=== PATIENT | male | born 1940 | race Caucasian/White ===

== ENCOUNTER → 2016-09-11 | Outpatient (REF) | payer MEDICARE, OTHER ==
[~2016-09-11] MED LIST: /AUGM875TA OR; /WARF5TA PO; ACET500C PO; ACET50TA PO; ACET50TAOT PO; ALLO100T OR; ALLO100T PO; AMPI50CA PO; APIDINJ INJ; APIDINJ2 SC; ASPI325T PO; BACT800T5 PO; BEN GAY TOP; BEN1.4DI TOP; BENGAY TOP; CEFD300CAP PO; COLA100C2 OR; COUM1TAB17 PO; COUM2TAB10 PO; COUM7.5T PO; DIGO0.126 OR; DULC10SU2 PR; DULC5TAB PO; ENAL2.5T PO; ENAL5TAB OR; FERR325T3 PO; FLUC10TA PO; FURO1TAB15 PO; FURO80TA2 OR; INSUH10VL SC; INSULANT SC; LANO0.1211 PO; LASI40TA PO; LASI80TA PO; LOPR100T OR; MESA50SU PR; METO100T PO; MICO2CRE39 EXT; SPIR25TA2 OR; SPIR25TA2 PO; TIMO0.255 OU; TIMO0.5S OU; TIMO5OPD OU; TIMO5OPG OU; TRAM37.53 PO; TRAM50TA2 PO; TRAV0.006 OU; TYLE500T53 OR; ULTR50TA PO; VASO5TAB11 PO; VICO5TAB OR; VICODIN PO; WARFARIN PO; XALA0.002 OU; XALATAN OPTH OU; XALATAN OU; ZITH250T PO
[2016-09-11 17:40] LABS: ALBUMIN 3.9 GM/DL (3.2-5.2); ALBUMIN/GLOBULIN RATIO 1.03 (1.00-1.93); ALKALINE PHOSPHATASE 73 U/L (45-117); ALT/SGPT 29 U/L (12-78); ANION GAP 8 MEQ/L (8-16); AST/SGOT 25 U/L (15-37); BILIRUBIN,TOTAL 0.5 MG/DL (0.2-1.0); BLOOD UREA NITROGEN 24 MG/DL (7-18); CALCIUM LEVEL 9.2 MG/DL (8.8-10.2); CARBON DIOXIDE LEVEL 25 MEQ/L (21-32); CHLORIDE LEVEL 108 MEQ/L (98-107); CHOLESTEROL LEVEL 174 MG/DL (<200); CREATININE FOR GFR 1.12 MG/DL (0.70-1.30); GLOMERULAR FILTRATION RATE > 60.0 (>42); GLUCOSE, FASTING 114 MG/DL (83-110); POTASSIUM SERUM 4.4 MEQ/L (3.5-5.1); SODIUM LEVEL 141 MEQ/L (136-145); TOTAL PROTEIN 7.7 GM/DL (6.4-8.2); TRIGLYCERIDES LEVEL 233 MG/DL (<150)
== END ==
LOC: M SFHCCLAY 10:05
PROVIDERS: ATTEND Family Medicine
DX: E11.9 Type 2 diabetes mellitus without complications (principal); E78.00 Pure hypercholesterolemia, unspecified

== ENCOUNTER → 2017-02-07 | Outpatient (REF) | payer MEDICARE, OTHER ==
[~2017-02-07] MED LIST changes: +AMPI500C9 PO; -AMPI50CA PO; +BIMA01SOL OU; -COUM2TAB10 PO; +COUM2TAB22 PO; -FURO1TAB15 PO; +FURO80TA2 PO; +HUMA100I3 SC; -METO100T PO; +METO100T5 PO; +WARF-23 PO; -XALA0.002 OU; +XALA0.007 OU
[2017-02-07 18:24] LABS: ANION GAP 10 MEQ/L (8-16); BLOOD UREA NITROGEN 24 MG/DL (7-18); CARBON DIOXIDE LEVEL 25 MEQ/L (21-32); CHLORIDE LEVEL 107 MEQ/L (98-107); CREATININE FOR GFR 1.17 MG/DL (0.70-1.30); GLOMERULAR FILTRATION RATE > 60.0 (>42); GLUCOSE, FASTING 102 MG/DL (83-110); POTASSIUM SERUM 4.4 MEQ/L (3.5-5.1); SODIUM LEVEL 142 MEQ/L (136-145)
== END ==
LOC: M SFHCCLAY 10:27
PROVIDERS: ATTEND Family Medicine
DX: E11.9 Type 2 diabetes mellitus without complications (principal); I50.20 Unspecified systolic (congestive) heart failure; I48.2 Chronic atrial fibrillation; Z79.01 Long term (current) use of anticoagulants; M10.9 Gout, unspecified; E78.00 Pure hypercholesterolemia, unspecified; Z85.51 Personal history of malignant neoplasm of bladder
CPT/HCPCS: 36415; 80048; 83036; G0463

== ENCOUNTER 2017-04-27 10:48 | Day surgery (SDC) | payer MEDICARE ==
[~2017-04-27] VITALS: Ht 172.7 cm; Wt 100.2 kg
[2017-04-27] MEDS ORDERED: LR 1,000 ML IV ONE (11:00)
[2017-04-27 11:39] LABS: INR 1.24
[2017-04-27] MEDS ORDERED: LIDOCAINE 1% SDV INJ 30 ML VIAL As Ordered ONE (12:43)
[2017-04-27] MEDS ORDERED: MIDAZOLAM INJ 2 MG/2 ML VIAL (J2250) As Ordered ONE (12:56)
[2017-04-27] MEDS ORDERED: LIDOCAINE 2% INJ 100 MG/5 ML SDV (FOR ANES.) As Ordered ONE (12:56)
[2017-04-27] MEDS ORDERED: fentaNYL 100 MCG/2 ML INJECTION (J3010) As Ordered ONE (12:56)
[2017-04-27] MEDS ORDERED: PROPOFOL 200 MG/20 ML VIAL As Ordered ONE ×2 (12:56→13:51)
[2017-04-27] MEDS ORDERED: PHENYLephrine HCL 500 MCG/5 ML (100MCG/ML) SYRINGE (J2370) As Ordered ONE (13:33)
[2017-04-27 15:15] VITALS: BP 116/65
--- NOTE | 2017-04-27 15:30 | RO ---
DATE OF PROCEDURE: 04/27/2017 PREOPERATIVE DIAGNOSIS: Pacemaker battery depletion. POSTOPERATIVE DIAGNOSIS: Pacemaker battery depletion. PROCEDURE PERFORMED: Explantation of old Medtronic single chamber pacemaker pulse generator and implantation of a new [place] [employer] single chamber pacemaker pulse generator. SURGEON: Jg Toledo MD CRATE TIER: None. ANESTHESIA: Lidocaine 1% local/monitored anesthetic care. FINDINGS: Pacemaker battery depletion. SPECIMENS: Old single chamber Medtronic pacemaker pulse generator. ESTIMATED BLOOD LOSS: Less than 5 mL. No blood products replaced. No drains. No complications. PROCEDURE DESCRIPTION: The patient was prepped and draped over the left pectoral region. 3M Ioban film was applied. Lidocaine 1% was used for local anesthetic. An incision was made with a IntelliFlo PEAK PlasmaBlade over the existing pacemaker incision. This was used to dissect down and through to the superior aspect of the pacemaker as it sat in the pocket, and also a small amount of fine scissor dissection was used to cut through parts of the capsule. The pacemaker pulse generator was then removed from the pocket, and after loosening the setscrew, the existing pacemaker lead was plugged into the pacemaker pulse generator and secured by tightening the setscrew with the hex screwdriver. Next, I then proceeded to dissect through and free up a portion of the existing pacemaker lead that was buried in the anterior capsule so as to make it safer to stitch the suture line closed without it going through a pacemaker lead, and this was performed using the PEAK PlasmaBlade. Next, I expanded the caudal portion of the pacemaker pocket to accommodate the larger and different shaped pacemaker pulse generator using blunt dissection, using two fingers. The new pacemaker pulse generator was tested wirelessly through the device. The pacemaker pulse generator was then placed into the pacemaker pocket with the excess lead material below. I then took a IntelliFlo TYRX antimicrobial envelope (medium) and cut it to six pieces. These pieces were placed on top of the pacemaker pulse generator and placed into the pacemaker pocket. The deep layer was closed using individual sutures consisting of #4-0 Vicryl. The skin was then approximated using subcutaneous stitch consisting of a #4-0 Biosyn suture, which was tied deep from the starting stitch and then snipped at the level of the skin at the other end of the suture line. Two layers of Dermabond was applied. Then, Mastisol was applied above and below the incision line and then, a layer of Steri-Strips were placed perpendicular to the incision line direction. Patient tolerated the procedure well without any immediate complications. The existing pacemaker lead was a Medtronic CapSureFix Bipolar INSULIN IS-1, Model 4076 with Serial #[id number]. It was originally implanted 11/22/2007. The explanted pacemaker pulse generator was a IntelliFlo, Model ADSR01, which had Serial #[id number]. It was originally implanted 11/22/2007. The new pacemaker pulse generator implanted was a [place] [employer] Accolade SR, Model L300 with Serial #[id number]. Device pace testing in the operating room through the new pacemaker pulse generator showed capture threshold of 0.7 V at 0.4 ms with R wave amplitude of 11.5 mV and lead impedance of 549 ohms. [facility]
== END 2017-04-27 15:34 | disposition home or self-care (01) ==
LOC: M SDC 10:48
PROVIDERS: ATTEND Internal Medicine Cardiovascular Disease
DX: T82.111A Breakdown (mechanical) of cardiac pulse generator (battery), initial encounter (principal); I48.2 Chronic atrial fibrillation; I42.0 Dilated cardiomyopathy; I10 Essential (primary) hypertension; E66.09 Other obesity due to excess calories; E10.9 Type 1 diabetes mellitus without complications; C67.9 Malignant neoplasm of bladder, unspecified; M54.5 Low back pain; G89.29 Other chronic pain; H40.9 Unspecified glaucoma; I25.2 Old myocardial infarction; M10.9 Gout, unspecified; M12.9 Arthropathy, unspecified; Z79.899 Other long term (current) drug therapy; Z79.4 Long term (current) use of insulin; Z79.01 Long term (current) use of anticoagulants; Z92.21 Personal history of antineoplastic chemotherapy; Z92.3 Personal history of irradiation; Z87.891 Personal history of nicotine dependence; X58.XXXA Exposure to other specified factors, initial encounter; Y92.89 Other specified places as the place of occurrence of the external cause; Y93.89 Activity, other specified; Y99.8 Other external cause status
CPT/HCPCS: 33227; 36415; 85610; C1785; C1882; J0690; J2250; J2370; J3010

== ENCOUNTER → 2017-06-06 | Outpatient (REF) | payer OTHER, MEDICARE ==
[2017-06-06 16:43] LABS: BASO # 0.1 10^3/uL (0.0-0.2); BASO % 0.8 % (0.0-1.0); EOS # 0.3 10^3/uL (0.0-0.50); EOS % 3.9 % (0.0-3.0); IMMATURE GRANULOCYTE % 0.6 % (0-0); LYMPH # 1.3 10^3/uL (1.5-4.5); LYMPH % 19.1 % (24.0-44.0); MEAN CORPUSCULAR HEMOGLOBIN 33.4 pg (27.0-33.0); MEAN CORPUSCULAR VOLUME 95.3 fl (80.0-96.0); MONO # 0.6 10^3/uL (0.0-0.8); MONO % 8.3 % (0.0-5.0); NEUTROPHILS # 4.5 10^3/uL (1.8-7.7); NEUTROPHILS % 67.3 % (36.0-66.0); PLATELET COUNT, AUTOMATED 220 10^3/uL (150-450); RED CELL DISTRIBUTION WIDTH 13.8 % (11.5-14.5); WHITE BLOOD COUNT 6.6 10^3/uL (4.0-10.0)
[2017-06-06 16:55] LABS: CALCIUM LEVEL 9.3 MG/DL (8.8-10.2); CREATININE FOR GFR 1.26 MG/DL (0.70-1.30); GLOMERULAR FILTRATION RATE 58.9 (>42); POTASSIUM SERUM 4.2 MEQ/L (3.5-5.1)
== END ==
LOC: M SFHCCLAY 10:34
PROVIDERS: ATTEND Family Medicine
DX: E11.9 Type 2 diabetes mellitus without complications (principal); Z23 Encounter for immunization

== ENCOUNTER → 2017-06-26 | Outpatient (REF) | payer MEDICARE | LOC: M SMT 13:43 | DX: R35.1 Nocturia (principal); Z85.51 Personal history of malignant neoplasm of bladder | CPT/HCPCS: 87088; 87186 ==

== ENCOUNTER → 2017-07-11 | Outpatient (REF) | payer MEDICARE, OTHER | LOC: M LABSMT 07:47 | DX: N39.0 Urinary tract infection, site not specified (principal) | CPT/HCPCS: 87186 ==

== ENCOUNTER → 2017-07-25 | Outpatient (REF) | payer MEDICARE, OTHER | LOC: M LABSMT 08:29 | DX: N39.0 Urinary tract infection, site not specified (principal) | CPT/HCPCS: 87088; 87186 ==

== ENCOUNTER → 2017-08-03 | Outpatient (REF) | payer MEDICARE, OTHER ==
[2017-08-03 11:37] LABS: INR 2.04; PROTHROMBIN TIME 23.7 SECONDS (12.4-14.5)
== END ==
LOC: M SFHCCLAY 09:04
DX: I48.2 Chronic atrial fibrillation (principal)
CPT/HCPCS: 85610

== ENCOUNTER → 2017-10-05 | Outpatient (REF) | payer MEDICARE ==
[2017-10-05 11:38] LABS: BASO % 0.5 % (0.0-1.0); EOS # 0.2 10^3/uL (0.0-0.50); EOS % 2.9 % (0.0-3.0); HEMOGLOBIN 14.6 g/dl (13.5-17.5); IMMATURE GRANULOCYTE % 0.7 % (0-3.0); LYMPH # 1.3 10^3/uL (1.5-4.5); LYMPH % 20.5 % (24.0-44.0); MEAN CORPUSCULAR HEMOGLOBIN 32.3 pg (27.0-33.0); MEAN CORPUSCULAR VOLUME 95.1 fl (80.0-96.0); MONO # 0.4 10^3/uL (0.0-0.8); MONO % 6.5 % (0.0-5.0); NEUTROPHILS # 4.2 10^3/uL (1.8-7.7); NEUTROPHILS % 68.9 % (36.0-66.0); PLATELET COUNT, AUTOMATED 220 10^3/uL (150-450); RED BLOOD COUNT 4.52 10^6/uL (4.30-6.10); RED CELL DISTRIBUTION WIDTH 14.2 % (11.5-14.5); WHITE BLOOD COUNT 6.1 10^3/uL (4.0-10.0)
[2017-10-05 12:01] LABS: ESTIMATED AVERAGE GLUCOSE 140 MG/DL (60-110); HEMOGLOBIN A1c 6.5 %
[2017-10-05 12:19] LABS: ALBUMIN 3.9 GM/DL (3.2-5.2); ALBUMIN/GLOBULIN RATIO 0.95 (1.00-1.93); ALKALINE PHOSPHATASE 70 U/L (45-117); ALT/SGPT 28 U/L (12-78); ANION GAP 7 MEQ/L (8-16); AST/SGOT 15 U/L (7-37); BILIRUBIN,TOTAL 0.5 MG/DL (0.2-1.0); BLOOD UREA NITROGEN 25 MG/DL (7-18); CALCIUM LEVEL 9.2 MG/DL (8.8-10.2); CARBON DIOXIDE LEVEL 26 MEQ/L (21-32); CHLORIDE LEVEL 111 MEQ/L (98-107); CHOLESTEROL LEVEL 152 MG/DL (<200); CHOLESTEROL RISK RATIO 4.903 (<5); CREATININE FOR GFR 1.32 MG/DL (0.70-1.30); GLOMERULAR FILTRATION RATE 55.8 (>42); GLUCOSE, FASTING 130 MG/DL (70-100); HDL CHOLESTEROL 31 MG/DL (>40); LDL CHOLESTEROL 74.6 MG/DL (<100); NON-HDL-C 121 MG/DL; POTASSIUM SERUM 4.1 MEQ/L (3.5-5.1); SODIUM LEVEL 144 MEQ/L (136-145); TRIGLYCERIDES LEVEL 232 MG/DL (<150)
== END ==
LOC: M SFHCCLAY 08:30
DX: E11.9 Type 2 diabetes mellitus without complications (principal); Z51.81 Encounter for therapeutic drug level monitoring; Z79.01 Long term (current) use of anticoagulants; E78.00 Pure hypercholesterolemia, unspecified
CPT/HCPCS: 80053

== ENCOUNTER → 2017-10-22 | Outpatient (REF) | payer MEDICARE ==
[2017-10-22 14:03] LABS: APPEARANCE, URINE CLEAR (CLEAR); BACTERIA, URINE AUTO NEGATIVE (NEGATIVE); BILIRUBIN, URINE AUTO NEGATIVE (NEGATIVE); BLOOD, URINE BLOOD NEGATIVE (NEGATIVE); COLOR, URINE STRAW (YELLOW); GLUCOSE, URINE (UA) AUTO NEGATIVE (NEGATIVE); KETONE, URINE AUTO NEGATIVE (NEGATIVE); LEUKOCYTE ESTERASE, URINE AUTO NEGATIVE (NEGATIVE); NITRITE, URINE AUTO NEGATIVE (NEGATIVE); PROTEIN, URINE AUTO NEGATIVE (NEGATIVE); RBC, URINE AUTO 1 /HPF (0-3); SPECIFIC GRAVITY URINE AUTO 1.008 (1.002-1.035); SQUAMOUS EPITHELIAL CELL UR AU 0 /HPF (0-6); UROBILINOGEN, URINE AUTO 0.2 mg/dL (0.0-2.0); WBC, URINE AUTO 6 /HPF (0-3)
== END ==
LOC: M LAB REF 13:01
DX: C67.9 Malignant neoplasm of bladder, unspecified (principal)
CPT/HCPCS: 81001

== ENCOUNTER → 2017-10-26 | Outpatient (CLI) | payer MEDICARE ==
[~2017-10-26] MED LIST changes: -/AUGM875TA OR; -/WARF5TA PO; -ACET500C PO; -ACET50TA PO; -ACET50TAOT PO; -ALLO100T OR; -ALLO100T PO; -AMPI500C9 PO; -APIDINJ INJ; -APIDINJ2 SC; -ASPI325T PO; -BACT800T5 PO; -BEN GAY TOP; -BEN1.4DI TOP; -BENGAY TOP; -BIMA01SOL OU; -CEFD300CAP PO; -COLA100C2 OR; -COUM1TAB17 PO; -COUM2TAB22 PO; -COUM7.5T PO; -DIGO0.126 OR; -DULC10SU2 PR; -DULC5TAB PO; -ENAL2.5T PO; -ENAL5TAB OR; -FERR325T3 PO; -FLUC10TA PO; -FURO80TA2 OR; -FURO80TA2 PO; +GASTROGRAFIN SOLUTION 30ML (Q9963) As Ordered; -HUMA100I3 SC; -INSUH10VL SC; -INSULANT SC; -LANO0.1211 PO; -LASI40TA PO; -LASI80TA PO; -LOPR100T OR; -MESA50SU PR; -METO100T5 PO; -MICO2CRE39 EXT; -SPIR25TA2 OR; -SPIR25TA2 PO; -TIMO0.255 OU; -TIMO0.5S OU; -TIMO5OPD OU; -TIMO5OPG OU; -TRAM37.53 PO; -TRAM50TA2 PO; -TRAV0.006 OU; -TYLE500T53 OR; -ULTR50TA PO; -VASO5TAB11 PO; -VICO5TAB OR; -VICODIN PO; -WARF-23 PO; -WARFARIN PO; -XALA0.007 OU; -XALATAN OPTH OU; -XALATAN OU; -ZITH250T PO
== END ==
LOC: M RAD 08:07
DX: C67.9 Malignant neoplasm of bladder, unspecified (principal); N28.1 Cyst of kidney, acquired; M51.36 Other intervertebral disc degeneration, lumbar region
CPT/HCPCS: Q9963

== ENCOUNTER → 2017-11-07 | Outpatient (REF) | payer MEDICARE | LOC: M SFHCCLAY 11:46 | DX: N39.0 Urinary tract infection, site not specified (principal) | CPT/HCPCS: 87088; 87186 ==

== ENCOUNTER → 2017-12-18 | Outpatient (REF) | payer MEDICARE | LOC: M SMT 16:40 | DX: Z08 Encounter for follow-up examination after completed treatment for malignant neoplasm (principal); Z85.51 Personal history of malignant neoplasm of bladder | CPT/HCPCS: 88108 ==

== ENCOUNTER 2018-03-19 18:57 | Emergency (ER) | payer MEDICARE, OTHER ==
[2018-03-19 19:52] LABS: INR 1.67
[2018-03-19 19:53] LABS: PARTIAL THROMBOPLASTIN TIME 49.6 SECONDS (25.4-37.6)
[2018-03-19 20:11] LABS: ALBUMIN 3.5 GM/DL (3.2-5.2); ALBUMIN/GLOBULIN RATIO 0.73 (1.00-1.93); ALKALINE PHOSPHATASE 55 U/L (45-117); ALT/SGPT 23 U/L (12-78); ANION GAP 9 MEQ/L (8-16); AST/SGOT 16 U/L (7-37); BILIRUBIN,DIRECT 0.2 MG/DL (0.0-0.2); BILIRUBIN,TOTAL 0.8 MG/DL (0.2-1.0); BLOOD UREA NITROGEN 18 MG/DL (7-18); C REACTIVE PROTEIN QUANTITATIV 7.96 MG/DL (0.00-0.30); CALCIUM LEVEL 8.9 MG/DL (8.8-10.2); CARBON DIOXIDE LEVEL 24 MEQ/L (21-32); CHLORIDE LEVEL 103 MEQ/L (98-107); CPK CREATINE PHOSPHOKINASE 67 U/L (39-308); CREATININE FOR GFR 1.16 MG/DL (0.70-1.30); GLOMERULAR FILTRATION RATE > 60.0 (>42); GLUCOSE, FASTING 108 MG/DL (70-100); MB/CK RELATIVE INDEX 1.94 (< OR =4); NT-PRO BNP 1026 PG/ML (<450); POTASSIUM SERUM 4.3 MEQ/L (3.5-5.1); SODIUM LEVEL 136 MEQ/L (136-145); TOTAL PROTEIN 8.3 GM/DL (6.4-8.2); TROPONIN I 0.02 NG/ML (< 0.10)
[2018-03-19 20:23] LABS: ERYTHROCYTE SEDIMENTATION RATE 53 mm/hr (0-20)
[2018-03-19 20:25] LABS: BASO % 0.3 % (0.0-1.0); EOS # 0.1 10^3/uL (0.0-0.50); EOS % 0.8 % (0.0-3.0); HEMATOCRIT 41.2 % (42.0-52.0); HEMOGLOBIN 14.3 g/dl (13.5-17.5); IMMATURE GRANULOCYTE % 0.5 % (0-3.0); LYMPH # 1.2 10^3/uL (1.5-4.5); LYMPH % 10.5 % (24.0-44.0); MEAN CORPUSCULAR HEMOGLOBIN 33.2 pg (27.0-33.0); MEAN CORPUSCULAR HGB CONC 34.7 g/dl (32.0-36.5); MEAN CORPUSCULAR VOLUME 95.6 fl (80.0-96.0); NEUTROPHILS # 8.9 10^3/uL (1.8-7.7); NEUTROPHILS % 78.9 % (36.0-66.0); PLATELET COUNT, AUTOMATED 220 10^3/uL (150-450); RED BLOOD COUNT 4.31 10^6/uL (4.30-6.10); RED CELL DISTRIBUTION WIDTH 13.8 % (11.5-14.5)
[2018-03-19 20:30] LABS: WHITE BLOOD COUNT 11.3 10^3/uL (4.0-10.0)
[2018-03-19] MEDS: GABAPENTIN 100 MG CAP PO (22:27)
== END 2018-03-19 22:35 | disposition home or self-care (01) ==
LOC: M ED 18:57
DX: M54.12 Radiculopathy, cervical region (principal); I48.91 Unspecified atrial fibrillation; R94.31 Abnormal electrocardiogram [ECG] [EKG]; E11.9 Type 2 diabetes mellitus without complications; N18.9 Chronic kidney disease, unspecified; M10.9 Gout, unspecified; Z87.891 Personal history of nicotine dependence; Z79.4 Long term (current) use of insulin; Z79.899 Other long term (current) drug therapy; Z79.01 Long term (current) use of anticoagulants
CPT/HCPCS: 71045

== ENCOUNTER → 2018-05-24 | Outpatient (REF) | payer MEDICARE ==
[2018-05-24 18:56] LABS: APPEARANCE, URINE MANUAL TURBID (CLEAR); COLOR, URINE MANUAL RED (YELLOW)
[2018-05-24 18:57] LABS: BILIRUBIN, URINE MANUAL NEGATIVE (NEGATIVE); BLOOD URINE MANUAL POSITIVE (NEGATIVE); GLUCOSE, URINE (UA) MANUAL NEGATIVE (NEGATIVE); KETONE, URINE MANUAL NEGATIVE (NEGATIVE); LEUKOCYTE ESTERASE, URINE MAN TRACE (NEGATIVE); MICROSCOPIC INDICATED? MAN YES (NO); NITRITE, URINE MANUAL NEGATIVE (NEGATIVE); PH,URINE MAN 5.5 UNITS (5.0 - 7.0); PROTEIN, URINE MANUAL 2+ mg/dL (NEGATIVE); UROBILINOGEN, URINE MANUAL NORMAL (NORMAL)
[2018-05-24 19:40] LABS: BACTERIA, URINE SMALL AMOUNT; HYALINE CAST, URINE NONE SEEN /lpf (0-1); MICROSCOPIC EXAM PERFORMED; MUCUS, URINE SMALL AMOUNT (NEGATIVE); RBC, URINE TNTC /hpf (0-3); SQUAMOUS EPITHELIAL CELL URINE SMALL AMOUNT /hpf (SMALL AMT)
== END ==
LOC: M SMT 17:03
DX: R31.9 Hematuria, unspecified (principal)
CPT/HCPCS: 81000

== ENCOUNTER → 2018-05-31 | Outpatient (REF) | payer MEDICARE | LOC: M SMT 17:08 | DX: Z85.51 Personal history of malignant neoplasm of bladder (principal) | CPT/HCPCS: 88108 ==

== ENCOUNTER → 2018-07-02 | Outpatient (CLI) | payer MEDICARE ==
[~2018-07-02] MED LIST changes: +/AUGM875TA OR; +/WARF5TA PO; +ACET500C PO; +ACET500T15 PO; +ACET50TA PO; +ALLO100T OR; +ALLO100T PO; +AMPI500C9 PO; +APIDINJ INJ; +APIDINJ2 SC; +ASPI325T PO; +BACT800T5 PO; +BEN GAY TOP; +BEN1.4DI TOP; +BENGAY TOP; +BIMA01SOL OU; +CEFD300CAP PO; +COLA100C2 OR; +COUM1TAB17 PO; +COUM2TAB22 PO; +COUM7.5T PO; +DIGO0.12 PO; +DIGO0.126 OR; +DULC10SU2 PR; +DULC5TAB PO; +ENAL2.5T PO; +ENAL5TAB OR; +FERR325T3 PO; +FLUC10TA PO; +FURO80TA2 OR; +FURO80TA2 PO; +GABA-1171 PO; -GASTROGRAFIN SOLUTION 30ML (Q9963) As Ordered; +HUMA100I3 SC; +INSUH10VL SC; +INSULANT SC; +LANO0.1211 PO; +LASI40TA9 PO; +LASI80TA3 PO; +LOPR100T OR; +MESA50SU PR; +METO100T5 PO; +MICO2CRE39 EXT; +SPIR-10 PO; +SPIR25TA2 OR; +TIMO0.255 OU; +TIMO0.5S OU; +TIMO5OPD OU; +TIMO5OPG OU; +TRAM37.53 PO; +TRAM50TA2 PO; +TRAV0.006 OU; +TYLE500T53 OR; +ULTR50TA PO; +VASO5TAB11 PO; +VICO5TAB OR; +VICODIN PO; +WARF-23 PO; +WARFARIN PO; +XALA0.007 OU; +XALATAN OPTH OU; +XALATAN OU; +ZITH250T PO
--- NOTE | 2018-07-02 11:06 | REP ---
Chest two views HISTORY: Bladder carcinoma Comparison: 03/19/2018 The lungs are clear. T the cardiac silhouette is enlarged. The pulmonary vasculature is normal in appearance. The bony structure is intact. A cardiac pacemaker is present. IMPRESSION: Cardiomegaly.
== END ==
LOC: M CLY 10:35
PROVIDERS: ATTEND Urology
DX: Z01.818 Encounter for other preprocedural examination (principal); C67.9 Malignant neoplasm of bladder, unspecified; I51.7 Cardiomegaly

== ENCOUNTER → 2018-07-03 | Outpatient (REF) | payer MEDICARE | LOC: M LABSMT 07-02 10:31 → M LABDRAWC 08:33 | PROVIDERS: ATTEND Urology | DX: C67.9 Malignant neoplasm of bladder, unspecified (principal); Z01.818 Encounter for other preprocedural examination; N39.0 Urinary tract infection, site not specified; Z53.8 Procedure and treatment not carried out for other reasons ==

== ENCOUNTER → 2018-07-03 | Outpatient (REF) | payer MEDICARE ==
[2018-07-03 11:21] LABS: HEMATOCRIT 41.5 % (42.0-52.0); HEMOGLOBIN 14.1 g/dl (13.5-17.5); MEAN CORPUSCULAR HEMOGLOBIN 32.3 pg (27.0-33.0); PLATELET COUNT, AUTOMATED 237 10^3/uL (150-450); RED BLOOD COUNT 4.37 10^6/uL (4.30-6.10); WHITE BLOOD COUNT 5.7 10^3/uL (4.0-10.0)
[2018-07-03 11:25] LABS: CALCIUM LEVEL 9.1 MG/DL (8.8-10.2); CREATININE FOR GFR 1.33 MG/DL (0.70-1.30); GLOMERULAR FILTRATION RATE 55.2 (>42); POTASSIUM SERUM 3.9 MEQ/L (3.5-5.1)
[2018-07-03 11:33] LABS: INR 1.67
[2018-07-03 11:34] LABS: PARTIAL THROMBOPLASTIN TIME 39.8 SECONDS (25.4-37.6)
== END ==
LOC: M LABSMT 08:33
PROVIDERS: ATTEND Urology
DX: Z01.818 Encounter for other preprocedural examination (principal); C67.9 Malignant neoplasm of bladder, unspecified; N39.0 Urinary tract infection, site not specified; E11.9 Type 2 diabetes mellitus without complications; Z79.01 Long term (current) use of anticoagulants; Z79.4 Long term (current) use of insulin
CPT/HCPCS: 80048; 85027; 85610; 85730; 87086; G0463

== ENCOUNTER 2018-07-12 10:45 | Day surgery (SDC) | payer MEDICARE ==
[~2018-07-12] VITALS: Ht 172.7 cm; Wt 101.2 kg
[~2018-07-12 10:45] MED LIST changes: +LR 1,000 ML IV ONE
[2018-07-12 11:52] LABS: INR 1.11; PROTHROMBIN TIME 14.4 SECONDS (12.1-14.4)
[2018-07-12] MEDS ORDERED: LIDOCAINE 2% INJ 100 MG/5 ML SDV (FOR ANES.) As Ordered ONE (13:37)
[2018-07-12] MEDS ORDERED: PROPOFOL 200 MG/20 ML VIAL As Ordered ONE (13:37)
[2018-07-12] MEDS ORDERED: ROCURONIUM BROMIDE 50 MG/5 ML VIAL As Ordered ONE (13:37)
[2018-07-12] MEDS ORDERED: MIDAZOLAM INJ 2 MG/2 ML VIAL (J2250) As Ordered ONE (13:37)
[2018-07-12] MEDS ORDERED: fentaNYL 100 MCG/2 ML INJECTION (J3010) As Ordered ONE ×2 (13:38→14:51)
[2018-07-12] MEDS ORDERED: dexameTHASONE 4 MG/ML 1ML VIAL (J1100) As Ordered ONE (14:32)
[2018-07-12] MEDS ORDERED: PHENYLephrine HCL 500 MCG/5 ML (100MCG/ML) SYRINGE (J2370) As Ordered ONE (14:33)
[2018-07-12] MEDS ORDERED: ePHEDrine SULFATE 25 MG/5 ML(5MG/ML) SYRINGE As Ordered ONE (14:37)
[2018-07-12] MEDS ORDERED: ONDANSETRON 4MG/2ML VIAL (J2405) As Ordered ONE (14:50)
[2018-07-12] MEDS ORDERED: SUGAMMADEX SODIUM 500 MG/5 ML VIAL (BRIDION) As Ordered ONE (14:56)
[2018-07-12] MEDS ORDERED: ACETAMINOPHEN TAB 650MG DOSE (2X325MG) PO PRN (15:45)
[2018-07-12] MEDS ORDERED: fentaNYL 100 MCG/2 ML INJECTION (J3010) IV PRN (15:45)
[2018-07-12] MEDS ORDERED: LR 1,000 ML IV SCH (15:45)
[2018-07-12] MEDS ORDERED: PERCOCET 5MG/325MG TAB PO PRN (15:45)
[2018-07-12] MEDS ORDERED: ONDANSETRON 4MG/2ML VIAL (J2405) IV PRN (15:45)
[2018-07-12] MEDS ORDERED: HYDROMORPHONE HCL 0.5 MG/ 0.5 ML SYRINGE (J1170 PER 1) IV PRN (15:45)
[2018-07-12 17:25] VITALS: BP 140/79
--- NOTE | 2018-07-13 04:03 | RO ---
DATE OF PROCEDURE: 07/12/2018 PREPROCEDURE DIAGNOSIS: Bladder cancer. POSTPROCEDURE DIAGNOSIS: Bladder cancer. PROCEDURE: Cystoscope, transurethral resection bladder tumor (less than 2 cm). SURGEON: Dr. Sarbjit Cochran. SENIOR COBOL DEVELOPER: None. ANESTHESIA: General. OPERATIVE INDICATIONS: This is a 78-year old male with a history of high grade bladder cancer that has been treated previously with chemotherapy and radiation therapy as well as intravesical BCG therapy. He is brought to the operating room today for the above listed procedure after findings a tumor recurrence on recent cystoscopy. DESCRIPTION OF PROCEDURE: The patient was brought to the operating room where general anesthesia was induced. Prophylactic antibiotics were infused. He was then placed in dorsal lithotomy position, and prepped and draped in the usual sterile fashion. At this point a resectoscope was inserted into the urethral meatus and advanced to the bladder using the visual obturator. The bladder was thoroughly examined and the only abnormalities seen were a few small papillary tumors on the posterior wall as well as in the middle of the trigone. All of these tumors were then resected using the Gyrus loop. Once I was certain that all of the tumors were resected, the coagulation current was utilized to obtain hemostasis. Once I was satisfied with hemostasis, all the tumors were removed and were sent out for pathologic analysis. The resectoscope was then taken out and an 18-[place] Mary catheter was inserted into the bladder. The balloon was filled with 10 mL of sterile water and then fluid drained clear at the end of the procedure. The catheter was connected to gravity drainage and this completed the end of procedure. The patient was then taken out of dorsal lithotomy position, awakened from anesthesia, and transferred to the recovery room in stable condition. ESTIMATED BLOOD LOSS: 5 mL COMPLICATIONS: [place]. SPECIMENS: Bladder tumors. PLAN: The patient will followup in the clinic in approximately 1 week for catheter removal and to discuss pathology results. SARAH
== END 2018-07-12 17:25 | disposition home or self-care (01) ==
LOC: M SDC 10:45
PROVIDERS: ATTEND Urology
DX: C18.9 Malignant neoplasm of colon, unspecified (principal); I48.91 Unspecified atrial fibrillation; I25.2 Old myocardial infarction; I50.9 Heart failure, unspecified; I12.9 Hypertensive chronic kidney disease with stage 1 through stage 4 chronic kidney disease, or unspecified chronic kidney disease; E10.22 Type 1 diabetes mellitus with diabetic chronic kidney disease; M12.9 Arthropathy, unspecified; M54.5 Low back pain; G89.29 Other chronic pain; N39.0 Urinary tract infection, site not specified; N18.9 Chronic kidney disease, unspecified; Z79.899 Other long term (current) drug therapy; Z79.01 Long term (current) use of anticoagulants; Z95.0 Presence of cardiac pacemaker; Z92.21 Personal history of antineoplastic chemotherapy; Z92.3 Personal history of irradiation; Z79.4 Long term (current) use of insulin; Z87.891 Personal history of nicotine dependence
CPT/HCPCS: 36415; 52234; 85610; 88305; J1100; J2250; J2370; J2405; J3010

== ENCOUNTER → 2018-09-13 | Outpatient (REF) | payer MEDICARE ==
[~2018-09-13] MED LIST changes: -LR 1,000 ML IV ONE
== END ==
LOC: M SFHCCLAY 09:21
PROVIDERS: ATTEND Family Medicine
DX: N39.0 Urinary tract infection, site not specified (principal)

== ENCOUNTER → 2018-09-30 | Outpatient (REF) | payer MEDICARE ==
[~2018-09-30] MED LIST changes: -/WARF5TA PO; -ACET50TA PO; +ASPI-1 PO; -ASPI325T PO; +CEFD300C41 PO; -CEFD300CAP PO; +LANO0.12 PO; -LANO0.1211 PO; +MAPA500T17 PO; +TIMO0.5S7 OU; -TIMO5OPG OU
== END ==
LOC: M SMT 12:50
PROVIDERS: ATTEND Urology
DX: C67.9 Malignant neoplasm of bladder, unspecified (principal)

== ENCOUNTER → 2018-10-08 | Outpatient (REF) | payer MEDICARE ==
[2018-10-08 19:03] LABS: ALBUMIN 3.6 GM/DL (3.2-5.2); BILIRUBIN,TOTAL 0.6 MG/DL (0.2-1.0); CALCIUM LEVEL 8.9 MG/DL (8.8-10.2); CREATININE FOR GFR 1.39 MG/DL (0.70-1.30); GLOMERULAR FILTRATION RATE 52.5 (>42); POTASSIUM SERUM 4.2 MEQ/L (3.5-5.1); TOTAL PROTEIN 7.7 GM/DL (6.4-8.2)
[2018-10-08 19:16] LABS: BASO % 0.3 % (0.0-1.0); EOS # 0.2 10^3/uL (0.0-0.50); EOS % 2.7 % (0.0-3.0); HEMATOCRIT 40.6 % (42.0-52.0); HEMOGLOBIN 13.5 g/dl (13.5-17.5); LYMPH # 1.4 10^3/uL (1.5-4.5); LYMPH % 21.6 % (24.0-44.0); MEAN CORPUSCULAR HEMOGLOBIN 32.2 pg (27.0-33.0); MEAN CORPUSCULAR HGB CONC 33.3 g/dl (32.0-36.5); MEAN CORPUSCULAR VOLUME 96.9 fl (80.0-96.0); MONO # 0.6 10^3/uL (0.0-0.8); MONO % 9.4 % (0.0-5.0); NEUTROPHILS # 4.3 10^3/uL (1.8-7.7); NEUTROPHILS % 65.1 % (36.0-66.0); PLATELET COUNT, AUTOMATED 184 10^3/uL (150-450); RED BLOOD COUNT 4.19 10^6/uL (4.30-6.10); WHITE BLOOD COUNT 6.6 10^3/uL (4.0-10.0)
== END ==
LOC: M LAB REF 16:45
PROVIDERS: ATTEND Internal Medicine Cardiovascular Disease
DX: I42.9 Cardiomyopathy, unspecified (principal); I50.9 Heart failure, unspecified